=== PATIENT | male | born 1990 | race Caucasian/White ===

== ENCOUNTER 2017-05-16 11:05 | Emergency (ER) | payer OTHER ==
[~2017-05-16] VITALS: Ht 188 cm; Wt 132.3 kg
[~2017-05-16 11:05] MED LIST: NORCO 325 MG-7.1 TAB PO; ZOFRAN 4MG T4 MG/TAB PO
[2017-05-16 11:21] VITALS: TEMP 98
[2017-05-16] MEDS ORDERED: ZOFRAN ODT4 MG PO (12:29)
[2017-05-16 12:54] VITALS: BP 138/78; PULSE 80
== END 2017-05-16 12:58 | disposition home or self-care (01) ==
LOC: COL.ER 11:05
DX: S06.0X0A Concussion without loss of consciousness, initial encounter (principal); F17.210 Nicotine dependence, cigarettes, uncomplicated; W18.09XA Striking against other object with subsequent fall, initial encounter; Y99.0 Civilian activity done for income or pay

== ENCOUNTER 2017-06-06 16:26 | Emergency (ER) | payer OTHER ==
[~2017-06-06] VITALS: Ht 188 cm; Wt 137.3 kg
[~2017-06-06 16:26] MED LIST changes: +ZOFRAN ODT4 MG PO
[2017-06-06 16:31] VITALS: TEMP 98.6
[2017-06-06] MEDS ORDERED: ANTIVERT 25MG25 MG PO (18:33)
[2017-06-06 19:25] VITALS: BP 136/77; PULSE 74
== END 2017-06-06 19:25 | disposition home or self-care (01) ==
LOC: COL.ER 16:26
DX: S06.0X0A Concussion without loss of consciousness, initial encounter (principal); R42 Dizziness and giddiness; W01.198A Fall on same level from slipping, tripping and stumbling with subsequent striking against other object, initial encounter; Y92.009 Unspecified place in unspecified non-institutional (private) residence as the place of occurrence of the external cause
CPT/HCPCS: J1200; J1885; J2550; J7030

== ENCOUNTER 2017-06-08 08:33 | Outpatient (RCR) | payer OTHER ==
[~2017-06-08 08:33] MED LIST changes: +ANTIVERT 25MG25 MG PO
== END 2017-08-16 | disposition still patient (30) ==
LOC: WSOH
DX: S06.0X0A Concussion without loss of consciousness, initial encounter (principal); W01.198A Fall on same level from slipping, tripping and stumbling with subsequent striking against other object, initial encounter; Y99.0 Civilian activity done for income or pay

== ENCOUNTER 2017-07-30 09:00 | Outpatient (RCR) | payer OTHER | END 2017-09-20 13:34 | disposition home or self-care (01) | LOC: WSST 09:00 | DX: R41.841 Cognitive communication deficit (principal); S06.0X0D Concussion without loss of consciousness, subsequent encounter; W01.198D Fall on same level from slipping, tripping and stumbling with subsequent striking against other object, subsequent encounter ==

== ENCOUNTER → 2017-09-03 | Outpatient (CLI) | payer OTHER ==
[2017-09-03 16:12] LABS: BASO # 0.1 (0.0-0.2); BASO % 0.7 % (0.0-2.0); EOS # 0.5 (0.0-0.7); EOS % 4.1 % (0-4.0); GRAN # 6.8 (1.4-6.5); GRAN % 56.2 % (42.2-75.2); LYMPH % 33.5 % (20.0-51.0); MEAN CELL VOLUME 85 fl (80.0-100.0); MEAN CORPUSCULAR HGB CONC 35 g/dl (33.0-37.0); MONO # 0.6 (0.1-0.6); MONO % 4.9 % (1.7-9.3); PLATELET COUNT 290 K/mm3 (130-400); RED BLOOD COUNT 6.18 M/mm3 (4.20-5.60); REDCELL DISTRIBUTION WIDTH-CV 11.8 % (11.5-14.5)
[2017-09-03 16:13] LABS: HEMATOCRIT 52.5 % (42.0-52.0); HEMOGLOBIN 18.2 g/dl (13.5-18.0); MEAN CORPUSCULAR HEMOGLOBIN 29 pg (27.0-31.0)
[2017-09-03 16:21] LABS: BILIRUBIN,TOTAL 0.5 mg/dL (0.0-1.0); C-REACTIVE PROTEIN 0.6 mg/dL (0.0-0.9); CALCIUM 10.3 mg/dL (8.4-10.2); CHOLESTEROL RISK RATIO 7.2; POTASSIUM 5.3 mmol/L (3.4-5.0)
[2017-09-03 16:48] LABS: TSH w REFLEX 1.59 uIU/mL (0.465-4.680)
== END ==
LOC: COL.LAB 14:13
PROVIDERS: Family Medicine
DX: Z00.00 Encounter for general adult medical examination without abnormal findings (principal); Z13.1 Encounter for screening for diabetes mellitus; Z13.220 Encounter for screening for lipoid disorders; R00.2 Palpitations; L40.9 Psoriasis, unspecified

== ENCOUNTER 2017-10-04 11:30 | Outpatient (RCR) | payer OTHER | END 2017-10-04 15:52 | disposition home or self-care (01) | LOC: MKS.ESL.PT 11:30 | DX: F07.81 Postconcussional syndrome (principal); H81.90 Unspecified disorder of vestibular function, unspecified ear ==

== ENCOUNTER 2018-08-22 16:10 | Emergency (ER) | payer OTHER ==
[~2018-08-22] VITALS: Ht 190.5 cm; Wt 134.1 kg
[2018-08-22 16:26] VITALS: BP 166/83; TEMP 97.6
[2018-08-22 19:05] VITALS: PULSE 92
== END 2018-08-22 19:06 | disposition home or self-care (01) ==
LOC: COL.ER 16:10
DX: S83.91XA Sprain of unspecified site of right knee, initial encounter (principal); F17.210 Nicotine dependence, cigarettes, uncomplicated; X50.1XXA Overexertion from prolonged static or awkward postures, initial encounter; Y99.0 Civilian activity done for income or pay
CPT/HCPCS: L1846

== ENCOUNTER → 2018-12-25 | Outpatient (CLI) | payer BC | LOC: ZCOL.LAB 16:12 | DX: Z01.84 Encounter for antibody response examination (principal) ==